=== PATIENT | male | born 1980 | race African-American/Black ===

== ENCOUNTER 2018-08-29 20:14 | Inpatient (IN) | payer OTHER ==
[~2018-08-29] VITALS: Ht 170.2 cm; Wt 58.1 kg
[~2018-08-29 20:14] MED LIST: BENADRYL25 MG; NOHOMEMEDICATIONS
[2018-08-29 20:15] VITALS: BP 134/68
[2018-08-29 22:01] LABS: ABSOLUTE NEUTROPHILS 9.8 thou/uL (1.4-8.2); BASOPHILS 0.5 % (0.0-2.0); HEMATOCRIT 45.1 % (42.0-52.0); LYMPHOCYTES 12.2 % (24.0-44.0); MCH 31.5 pg (26.0-34.0); MCHC 33.2 g/dL (28.0-37.0); MCV 94.8 fL (80.0-100.0); MONOCYTES 6.6 % (1.0-8.0); PLATELET COUNT 219 thou/uL (150-400); POLYS 80.7 % (36.0-66.0); RBC 4.76 mil/uL (4.50-6.00); RDW 13.1 % (10.5-14.5); WBC 12.1 thou/uL (4.0-11.0)
[2018-08-29 22:12] LABS: CREATININE 1.6 mg/dL (0.7-1.3); POTASSIUM 3.1 mmol/L (3.5-5.1)
[2018-08-30 01:27] VITALS: BP 150/102
[2018-08-30 08:14] LABS: CALCIUM 9.6 mg/dL (8.5-10.1); CREATININE 1.1 mg/dL (0.7-1.3); POTASSIUM 3.8 mmol/L (3.5-5.1)
[2018-08-30 08:20] LABS: ALBUMIN 4.3 g/dL (3.4-5.0); TOTAL BILIRUBIN 1.1 mg/dL (<0.1-1.0); TOTAL PROTEIN 8.4 g/dL (6.4-8.2)
[2018-08-30 09:02] LABS: URINE BILIRUBIN NEGATIVE (Negative); URINE BLOOD TRACE (Negative); URINE CLARITY CLEAR; URINE COLOR YELLOW; URINE GLUCOSE-RANDOM* NEGATIVE (Negative); URINE KETONES 2+ (Negative); URINE LEUKOCYTES-REFLEX NEGATIVE (Negative); URINE NITRITE-REFLEX NEGATIVE (Negative); URINE PROTEIN (DIPSTICK) TRACE (Negative); URINE SPECIFIC GRAVITY 1.025 (1.005-1.035); URINE UROBILINOGEN 0.2 E.U./dl (0.2-1.0)
[2018-08-30 09:11] LABS: AMP/METHAMP POSITIVE (Negative); BARBITURATES Negative (Negative); BENZODIAZEPINES Negative (Negative); COCAINE POSITIVE (Negative); METHADONE Negative (Negative); OPIATES Negative (Negative); PCP Negative (Negative)
[2018-08-30 12:49] VITALS: BP 122/74
[2018-08-30 13:07] VITALS: BP 122/74
[2018-08-30 14:32] VITALS: BP 161/109
[2018-08-30 19:31] VITALS: BP 139/104
--- NOTE | 2018-08-30 19:52 | NUR ---
ARRIVED TO FLOOR FROM ED DROWSY BUT REQUESTING SOMETHING TO EAT. PROVIDED LUNCH. ADMISSION HISTORY AND ASSESSMENT COMPLETED. PATIENT ABLE TO ANSWER MOST QUESTIONS, HOWEVER FALLS OFF TO SLEEP EASILY. FALL PRECAUTIONS IN PLACE. SLEPT MOST OF THE AFTERNOON. DID AWAKEN WITH LOW BACK PAIN. FENTANYL GIVEN AND PATIENT WENT BACK TO SLEEP. MONITORED CLOSELY ON HOURLY ROUNDS.
[2018-08-31 00:07] VITALS: BP 156/116
[2018-08-31 01:28] VITALS: BP 143/94
--- NOTE | 2018-08-31 03:46 | NUR ---
PATIENT WAS SLEEPING MOST OF THE SHIFT. PATIENT UNDERSTANDS HIS OWN LIMITS AND KNOWS TO CALL FOR HELP NEEDED. FALL PRECAUTIONS IN PLACE. PATIENT WAS NOT AGGRESIVE OR COMBATIVE DURING SHIFT. PATIENT WAS MORE ALERT IN THE MORNING AND REQUESTED PAIN MEDS. FENTANYL WAS ADMINISTERED AND PATIENT WAS SLEEPING UPON REASSESSMENT.
[2018-08-31 04:47] VITALS: BP 145/112
[2018-08-31 06:06] LABS: ALBUMIN 3.2 g/dL (3.4-5.0); CALCIUM 8.8 mg/dL (8.5-10.1); CREATININE 0.8 mg/dL (0.7-1.3); PHOSPHORUS 3.3 mg/dL (2.5-4.9); POTASSIUM 3.7 mmol/L (3.5-5.1)
[2018-08-31 08:00] VITALS: BP 148/115
--- NOTE | 2018-08-31 13:57 | NUR ---
PT ADMITTED RELATED TO RHABDOMYOLISIS; SUBSTANCE ABUSE; SCHIZOAFFECTIVE DISORDER. CM REVIEWED CHART AND SPOKE WITH CARE TEAM. CM MET WITH PT AT BEDSIDE THIS DAY. PT INDICATED HE RESIDES IN A HOUSE WITH HIS MOTHER WITH NO STEPS TO ENTER AND NO STEPS INSIDE. 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 PT INDICATED HE SEES A PCP AT [facility] [place]. PT INDICATED HE PLANS TO RETURN HOME WITH MOTHER ONCE MEDICALLY STABLE. PT INDICATED HE HAD DONE OUTPATIENT PROGRAMING FOR SUBSTANCE IN THE PAST BUT THAT HE WASN'T INTERESTED IN DOING SO UPON DISHCARGE. PT ASKED ABOUT BEING DISCHARGED. CM INDICATED THAT AT THIS TIME PT ISN'T ABLE TO LEAVE AMA THERE ARE TWO AFFIDAVITS ON THE CHART AND THAT PT NEEDS TO BE SEE BY PSYCHIATRIST TO BE CLEARED TO LEAVE. CM TO FOLLOW INDICATED WITH DC PLANNING.
[2018-08-31] MEDS ORDERED: CATAPRES0.1 MG PO (15:39)
[2018-08-31 15:49] VITALS: BP 115/113
== END 2018-08-31 16:17 | disposition home or self-care (01) | DRG 557 ==
LOC: ER 20:14 → EROBS 08-30 09:26 → 4W 08-30 13:09
PROVIDERS: Emergency Medicine; ADMIT Hospitalist
DX: M62.82 Rhabdomyolysis (principal); N17.0 Acute kidney failure with tubular necrosis; E87.2 Acidosis; F19.121 Other psychoactive substance abuse with intoxication delirium; R46.1 Bizarre personal appearance; E87.6 Hypokalemia; I10 Essential (primary) hypertension; F14.10 Cocaine abuse, uncomplicated; F15.10 Other stimulant abuse, uncomplicated; F31.9 Bipolar disorder, unspecified; F12.10 Cannabis abuse, uncomplicated; F20.9 Schizophrenia, unspecified; Z87.828 Personal history of other (healed) physical injury and trauma; Z79.899 Other long term (current) drug therapy; Z23 Encounter for immunization
CPT/HCPCS: 10045

== ENCOUNTER 2021-01-08 07:23 | Emergency (ER) | payer OTHER ==
[~2021-01-08] VITALS: Ht 170.2 cm; Wt 63.5 kg
[~2021-01-08 07:23] MED LIST changes: +CATAPRES0.1 MG PO
[2021-01-08 07:25] VITALS: BP 167/107
== END 2021-01-08 08:00 | disposition home or self-care (01) ==
LOC: ER 07:23
DX: U07.1 COVID-19 (principal); F17.210 Nicotine dependence, cigarettes, uncomplicated; I10 Essential (primary) hypertension; Z98.890 Other specified postprocedural states